=== PATIENT | male | born 1940 | race Caucasian/White ===

== ENCOUNTER 2017-03-24 19:53 | Emergency (ER) | payer OTHER ==
[~2017-03-24] VITALS: Ht 172.7 cm; Wt 67.7 kg
[2017-03-24 21:24] LABS: MEAN PLAT.VOLUME 11.3 uM^3 (9.0-12.4); PLATELET COUNT 150 K/uL (156-360)
[2017-03-24 21:37] LABS: CHLORIDE 103 mEq/L (99-109); POTASSIUM 4.8 mEq/L (3.7-5.4); SODIUM 138 mEq/L (136-147)
[2017-03-24 21:39] LABS: GLUCOSE 112 mg/dL (70-99)
[2017-03-24 21:40] LABS: ANION GAP 9 MEQ/L (2-14)
[2017-03-24 21:42] LABS: HEMATOCRIT 40.6 % (38.0-50.0); MCH 30.3 PG (29.0-34.0); MCHC 31.8 G/DL (30.0-36.0); MCV 95.3 FL (86-99); RBC DIS.WIDTH-CV 13.8 % (11.8-14.6); RBC DIS.WIDTH-SD 47.3 % (39-53); RED BLOOD COUNT 4.26 M/uL (4.00-5.50)
[2017-03-24 21:43] LABS: GFR ESTIMATE (CALCULATED) > 59 mL/min/ (58.99-99999)
[2017-03-24 21:44] LABS: UREA NITROGEN (BUN) 16 mg/dL (9-23)
[2017-03-24 21:49] LABS: TROP-I INTERPRETATION NEGATIVE; TROPONIN-I < 0.01 ng/mL (0.0-0.30)
[2017-03-24 21:54] LABS: WHITE BLOOD COUNT 94.7 K/uL (4.1-10.2)
[2017-03-24 23:06] VITALS: BP 133/67
== END 2017-03-24 23:06 | disposition home or self-care (01) ==
LOC: EME 19:53
PROVIDERS: Emergency Medicine
DX: I10 Essential (primary) hypertension (principal); T46.5X6A Underdosing of other antihypertensive drugs, initial encounter; Z91.128 Patient's intentional underdosing of medication regimen for other reason; Z85.6 Personal history of leukemia
CPT/HCPCS: 71020; 80048; 83880; 84484; 85027; 93005; 99281; 99284; J0360

== ENCOUNTER 2017-04-08 14:28 | Emergency (ER) | payer OTHER ==
[~2017-04-08] VITALS: Ht 172.7 cm; Wt 67.4 kg
[2017-04-08 17:18] VITALS: BP 195/118
== END 2017-04-08 17:19 | disposition home or self-care (01) ==
LOC: EME 14:28
DX: I10 Essential (primary) hypertension (principal); C91.10 Chronic lymphocytic leukemia of B-cell type not having achieved remission; F41.9 Anxiety disorder, unspecified
CPT/HCPCS: 99281; 99284